=== PATIENT | female | born 1955 | race Caucasian/White ===

== ENCOUNTER 2025-03-27 17:41 | Emergency (ER) | payer OTHER, SELFPAY ==
--- NOTE | ~2025-03-27 | XR_ITS ---
CLINICAL HISTORY: wound 2 view left tibia-fibula Comparison: None provided Findings Mild osteopenia. No fracture or dislocation. No joint effusion. Prior total knee arthroplasty. Arterial calcifications are present. Calcaneal spur. IMPRESSION: 1. Prior total knee arthroplasty. 2. Mild osteopenia. 3. Arterial calcifications. 4. Calcaneal spur. 5. No acute osseous injury. This document has been electronically signed by: Ronald Ocampo MD on 03/27/2025 20:20:40
[2025-03-27 17:43] VITALS: BP 144/67; PULSE 85; RESP 16; TEMP 36.7; O2SAT 96; BMI 34.5
--- NOTE | 2025-03-27 17:45 | ED_ITS ---
HPI - Skin/Abscess/Foreign Bdy General Chief complaint: Wound/Laceration Stated complaint: Left leg wound Time Seen by Provider: 03/27/25 18:41 Source: patient Mode of arrival: ambulatory Limitations: no limitations History of Present Illness ED Provider: Dr. Mcginnis [facility] narrative: This is a 70-year-old female presented hospital today for evaluation of left leg wound. This has been going on for the past 15 days. Patient stated that there was a laceration initially. She has history of diabetes. However the wound become dehiscence. Since then this wound has been slowly healing and slow to heal. Patient's daughter was worried about the ulceration and drainage coming out from the wound. She is not currently on any antibiotics. She noticed some redness around the wound and pain Related Data Previous Rx's ?Medication ?Instructions ?Recorded ciprofloxacin HCl 500 mg tablet 500 mg PO Q12H 7 days #14 tabs 03/27/25 doxycycline hyclate 100 mg tablet 100 mg PO BID 7 days #14 tabs 03/27/25 oxycodone 5 mg tablet 5 mg PO Q8H PRN pain #14 tab s 03/27/25 Allergies Allergy/AdvReac Type Severity Reaction Status Date / Time No Known Allergies Allergy Verified 03/27/25 17:50 Review of Systems 2 Review of Systems: Pertinent review of systems as mentioned in HPI. All other system otherwise negative. [facility] Past Medical History [facility] Narrative: Diabetes Physical Exam 2 Exam: Exam: General: Pleasant, no distress, interacting appropriately Head: Normacephalic, atraumatic Extremity: This is a wound on patient's left leg around the tibia area. Appears to have some eschar tissue over it. No active drainage or fluctuance. However does appear to be erythematous on exam. CMS intact in the left lower extremity. Neurological: Awake and alert, no facial droop noted Skin: Warm and dry Psychiatric: Appropriate mood and thoughts Vital Signs: Vital Signs: Last Vital Signs Temp 98.2 F 03/27/25 21:35 Pulse 82 03/27/25 21:35 Resp 16 03/27/25 21:35 BP 136/82 03/27/25 21:35 Pulse Ox 100 03/27/25 21:35 O2 Del Method Room Air 03/27/25 21:35 BMI result Body Mass Index 34.5 Course Course Course Narrative: This is a Rapid Medical Exam performed in triage by Ngoc De La Garza PA-C. Full HPI, ROS and PE to be performed by primary ED provider. 70-year-old [place] Korean-speaking female w/pmhx DM presenting to the ED c/o wound to LLE s/p hitting leg with cardboard box 15 days ago. Has been seen by other providers but states sx are not improving - denies being on Abx PE: +open wound to LLE with surrounding erythema Plan: Labs Medications Administered Discontinued Medications Generic Name Dose Route Start Last Admin Trade Name James PRN Reason Stop Dose Admin Cephalexin HCl 500 mg 03/27/25 19:05 03/27/25 20:00 Cephalexin 500 Mg Capsule PO 03/27/25 19:06 500 mg ONCE ONE Administration Doxycycline Monohydrate 100 mg 03/27/25 19:05 03/27/25 20:00 Doxycycline Monohydrate 100 Mg Capsule PO 03/27/25 19:06 100 mg ONCE ONE Administration Oxycodone HCl 5 mg 03/27/25 20:49 03/27/25 21:33 Oxycodone Hcl Immed Release 5 Mg Tablet PO 03/27/25 20:50 5 mg ONCE ONE Administration Medical Decision Making Medical Decision Making [facility] Narrative: This is a 70-year-old female presented hospital today for evaluation of left leg wound that has been there for the past 15 days. Unfortunately did not heal well after suturing. We will plan to obtain x-ray to assess for any signs of gas forming organism versus osteomyelitis. Oxycodone will be given for pain control. We will plan to give patient some antibiotic here. P.o. doxycycline and Keflex will be given to the patient. Lab work did not show any signs of leukocytosis. Patient does not have any signs of tachycardia. X-ray is negative for any osteomyelitis or soft tissue gas I think this is uncomplicated cellulitis secondary to a chronic wound on her left leg. Unfortunately did not heal well. At this time we will plan to discharge patient with a course of doxycycline and ciprofloxacin to take. We will also send a referral for Wound Clinic for the patient to follow up with. historical interpreter was used for this encounter. Patient will be discharged Differential Diagnosis Differential Diagnoses: The differential diagnosis associated with the presentation includes Cellulitis, abscess, wound dehiscence, necrotizing fasciitis, osteomyelitis Lab Data [facility] Lab Attestation statement: I reviewed the patient's lab results. 03/27/25 18:19 03/27/25 18:19 Labs: Lab Results 03/27/25 Range/Units 18:19 WBC 7.6 (4.8-10.8) X10*3/uL RBC 3.81 L (4.20-5.50) X10*6/uL Hgb 12.0 (12.0-16.0) g/dl Hct 37.0 (37.0-47.0) % MCV 97.1 (80.0-98.0) fL MCH 31.5 (27.0-33.0) pg MCHC 32.4 (31.0-35.0) g/dl RDW 15.3 (11.0-16.0) % Plt Count 185 (160-400) X10*3/uL MPV 11.7 (9.4-12.3) fL Immature Gran % (Auto) 0.3 (0.0-0.4) % Neut % (Auto) 44.9 L (45-73) % Lymph % (Auto) 40.7 H (20-40) % [place] % (Auto) 10.0 (2-11) % Eos % (Auto) 3.6 (0-4) % Baso % (Auto) 0.5 (0-2) % Lymph # (Auto) 3.1 (1.2-4.9) X10*3/uL [place] # (Auto) 0.8 (0.1-1.2) X10*3/uL Eos # (Auto) 0.3 (0.0-0.4) X10*3/uL Baso # (Auto) 0.0 (0.0-0.2) X10*3/uL Abs Immat Gran (auto) 0.02 (0.00-0.03) X10*3/uL Absolute Neuts (auto) 3.4 (2.0-8.3) x10*3/uL Absolute Nucleated RBC 0.000 (0.0-0.012) X10*3/uL Nucleated RBC % (auto) 0.0 (0.0-0.2) /100WBC ESR 74 H (0-20) MM/HR Sodium 139 (135-145) mmol/L Potassium 4.7 (3.3-5.1) mmol/L Chloride 106 (96-108) mmol/L Carbon Dioxide 27 (22-29) mmol/L Anion Gap 11 L (12-20) BUN 21 H (9-16) mg/dL Creatinine 0.82 (0.5-1.4) mg/dL Estim Creat Clear Calc 58.9 Estimated GFR > 60 Random Glucose 87 (60-115) mg/dL Calcium 8.9 (8.4-10.2) mg/dL C-Reactive Protein 2.51 H (< or = 0.50) mg/dL Independent Interpretation I performed an independent interpretation of an: Plain X-Ray Radiology Impression Discussion of test interpretation with radiology: I have reviewed the radiologist's reading. Prescription Management I considered prescription management with: Antibiotic Discharge Plan Discharge Clinical Impression: Cellulitis Patient Disposition: Home, Self-Care Instructions: Cellulitis (ED) Prescriptions: New doxycycline hyclate 100 mg tablet 100 mg PO BID 7 Days Qty: 14 0RF ciprofloxacin HCl 500 mg tablet 500 mg PO Q12H 7 Days Qty: 14 0RF oxycodone 5 mg tablet 5 mg PO Q8H PRN (Reason: pain) Qty: 14 0RF Rx Instructions: Partial Fill upon patient request. Referrals: [facility] [Outside] Interventions: ED Discharge Assessment Last Done: 03/27/25 21:35 Discharge Date/Time: 03/27/25 21:35 Print Language: South Korean
[2025-03-27 18:26] LABS: MANUAL DIFF FLAG NO
[2025-03-27 18:37] LABS: Anion Gap 11 (12-20); Blood Urea Nitrogen 21 mg/dL (9-16); Calcium 8.9 mg/dL (8.4-10.2); Carbon Dioxide 27 mmol/L (22-29); Chloride 106 mmol/L (96-108); Creatinine Clr Calc Pharmacy 58.9; Estimated Glomerular Filt Rate > 60; Potassium 4.7 mmol/L (3.3-5.1); Sodium 139 mmol/L (135-145)
[2025-03-27 19:22] LABS: Erythrocyte Sedimentation Rate 74 MM/HR (0-20)
[2025-03-27 19:52] LABS: Hematocrit 37.0 % (37.0-47.0); Hemoglobin 12.0 g/dl (12.0-16.0); Imm Gran Abs Auto 0.02 X10*3/uL (0.00-0.03); Imm Gran Pct Auto 0.3 % (0.0-0.4); Lymphocytes Absolute Auto 3.1 X10*3/uL (1.2-4.9); Mean Corpuscular HGB Conc 32.4 g/dl (31.0-35.0); Mean Corpuscular Hemoglobin 31.5 pg (27.0-33.0); Mean Corpuscular Volume 97.1 fL (80.0-98.0); NRBC Abs Auto 0.000 X10*3/uL (0.0-0.012); NRBC Pct Auto 0.0 /100WBC (0.0-0.2); Platelet Count 185 X10*3/uL (160-400); Red Blood Count 3.81 X10*6/uL (4.20-5.50); White Blood Count 7.6 X10*3/uL (4.8-10.8)
[2025-03-27 21:33] VITALS: BP 136/82; PULSE 82; RESP 16; TEMP 36.8; O2SAT 100
[2025-03-27] MEDS: oxyCODONE HCl Immed Release 5 MG TABLET PO (21:33)
[2025-03-27 21:35] VITALS: BP 136/82; PULSE 82; RESP 16; TEMP 36.8; O2SAT 100
== END 2025-03-27 21:35 | disposition home or self-care (01) ==
PROVIDERS: Physician Assistant; Emergency Provider Student in an Organized Health Care Education/Training Program; PCP Internal Medicine
DX: L03.116 Cellulitis of left lower limb (principal); E11.9 Type 2 diabetes mellitus without complications
CPT/HCPCS: 36415; 73590; 80048; 85025; 85652; 86140; 99283; 99284

== ENCOUNTER → 2025-03-27 19:06 | Outpatient (BNV) | payer OTHER, SELFPAY | PROVIDERS: Emergency Provider Student in an Organized Health Care Education/Training Program; PCP Internal Medicine; Visit Provider Radiology Diagnostic Radiology | DX: M85.862 Other specified disorders of bone density and structure, left lower leg (principal); I70.202 Unspecified atherosclerosis of native arteries of extremities, left leg; M77.32 Calcaneal spur, left foot; Z96.652 Presence of left artificial knee joint | CPT/HCPCS: 73590 ==

== ENCOUNTER 2025-04-03 20:29 | Inpatient (IN) | payer OTHER, SELFPAY ==
--- NOTE | ~2025-04-03 | XR_ITS ---
EXAMINATION: XR LUMBOSACRAL SPINE CLINICAL INFORMATION: low back pain COMPARISON: None available. TECHNIQUE: AP and lateral views FINDINGS: Multilevel marginal osteophyte formation, endplate sclerosis decreased intervertebral disc height throughout the lower thoracic and lumbar spine. 1 mm anterolisthesis L4-5. Facet joint hypertrophy at L4-5 and L5-S1. No acute cortical disruption. No lytic or blastic lesions. XR/XR lumbar spine 2-3V IMPRESSION: Multilevel thoracolumbar spondylosis resulting in grade 1 anterolisthesis L4-5. EXAMINATION: XR SACROILIAC JOINTS CLINICAL INFORMATION: low back pain COMPARISON: None available. TECHNIQUE: AP and oblique views of the sacroiliac joints FINDINGS: Degenerative changes in the sacroiliac joints. No acute cortical disruption. No lytic or blastic lesions. Osteopenia versus osteoporosis. Spondylosis lower lumbar spine. Degenerative changes in the symphysis pubis. IMPRESSION: Degenerative changes without acute fracture. Electronically signed by: Deonte Denson MD 04/05/2025 10:30 AM [facility]
--- NOTE | ~2025-04-03 | XR_ITS ---
EXAMINATION: XR LUMBOSACRAL SPINE CLINICAL INFORMATION: low back pain COMPARISON: None available. TECHNIQUE: AP and lateral views FINDINGS: Multilevel marginal osteophyte formation, endplate sclerosis decreased intervertebral disc height throughout the lower thoracic and lumbar spine. 1 mm anterolisthesis L4-5. Facet joint hypertrophy at L4-5 and L5-S1. No acute cortical disruption. No lytic or blastic lesions. XR/XR sacrum coccyx min 2V IMPRESSION: Multilevel thoracolumbar spondylosis resulting in grade 1 anterolisthesis L4-5. EXAMINATION: XR SACROILIAC JOINTS CLINICAL INFORMATION: low back pain COMPARISON: None available. TECHNIQUE: AP and oblique views of the sacroiliac joints FINDINGS: Degenerative changes in the sacroiliac joints. No acute cortical disruption. No lytic or blastic lesions. Osteopenia versus osteoporosis. Spondylosis lower lumbar spine. Degenerative changes in the symphysis pubis. IMPRESSION: Degenerative changes without acute fracture. Electronically signed by: Deonte Denson MD 04/05/2025 10:30 AM [facility]
--- NOTE | ~2025-04-03 | XR_ITS ---
CLINICAL HISTORY: fever sepsis 1 view chest x-ray Comparison: None provided Findings: There is minor atelectasis in the medial left lung base. No consolidation or effusion. Heart size is normal. No acute fracture. IMPRESSION: Atelectasis left medial lung base. This document has been electronically signed by: Rachel Degroot MD on 04/03/2025 21:36:53
--- NOTE | ~2025-04-03 | XR_ITS ---
CLINICAL HISTORY: red warm lesion, medial leg 2 view left tibia-fibula Comparison: CR - XR TIBIA FIBULA LT 2V - 03/27/25 19:17 EST Findings Osteopenia. No acute fracture. Knee arthroplasty without hardware complications. No joint effusions. Calcaneal spurs. No erosions. Vascular calcifications. IMPRESSION: Medial mid leg soft tissue swelling. No soft tissue gas. This document has been electronically signed by: Rachel Degroot MD on 04/03/2025 21:38:18
[2025-04-03 20:46] VITALS: BP 135/69; PULSE 112; RESP 17; TEMP 39.7; O2SAT 97
--- NOTE | 2025-04-03 20:49 | ED_ITS ---
HPI - Fever General Chief Complaint: General Medical Stated Complaint: Neck pain, upper body stiffness Time Seen by Provider: 04/03/25 20:44 History of Present Illness ED Provider: anthony HPI Narrative: 70 F with arthritis, DM, LLE injury 1 mo ago (cardboard box fell on medial leg) now worse, painful, scabbing and fever. Worsening acute on chronic hand pain R > L. Related Data Home Medications ?Medication ?Instructions ?Recorded ?Confirmed acetaminophen 325 mg tablet 650 mg PO Q4H PRN Pain 08/2404/04/25 amitriptyline 25 mg tablet 25 mg PO BEDTIME 04/04/25 1 06/05/24 atorvastatin 40 mg tablet 40 mg PO DAILY 04/04/2508/24 benzonatate 100 mg capsule 100 mg PO TID PRN Cough 08/2404/04/25 diclofenac sodium 1 % topical gel 4 g topical BID PRN pain 04/04/25 04/04/25 fluticasone propionate 50 2 spray intranasal BID PRN N mirella 04/04/25 04/04/25 mcg/actuation nasal Congestion spray,suspension insulin glargine 100 unit/mL (3 15 unit subcut BEDTIME 04/04/25 04/04/25 mL) subcutaneous pen (Lantus Solostar U-100 Insulin) sertraline 25 mg tablet 25 mg PO DAILY 04/04/2508/24 tizanidine 2 mg tablet 2 mg PO BID 04/04/25 5 Previous Rx's ?Medication ?Instructions ?Recorded doxycycline hyclate 100 mg tablet 100 mg PO BID 7 days #14 tabs 03/27/25 midodrine 2.5 mg tablet 2.5 mg PO TID@0900,1300,1700 90 04/06/25 days #120 tabs prednisone 20 mg tablet 40 mg (2 x 20 mg) PO DAILY 5 days 04/06/25 #10 tabs Allergies Allergy/AdvReac Type Severity Reaction Status Date / Time Penicillins (PCN) AdvReac Unknown Flushing Verified 04/03/25 21:07 PMFSH Past Medical History Medical History (Updated 04/04/25 @ 02:55 by Chanel Carlson) Class 1 obesity T2DM (type 2 diabetes mellitus) HLD (hyperlipidemia) Anxiety Social History Social History Household Members: None Housing: House Do you presently have visiting nurse or other home services: Yes (DIRECTOR VOICE 33hrs/wk) Patient Tobacco Use Status: Never used Tobacco service: No Physical Exam 2 Exam: Exam: EXAM: Gen: Alert, awake, Mildly ill, appearing but not toxic, warm to the touch Head: Atraumatic Eyes: Anicteric, Normal conjunctiva. ENT: Moist mucosa, no pallor. Neck: Supple. Respiratory: Breathing comfortably, No distress.Clear to auscultation bilaterally, symmetric chest expansion, No wheeze, rales, ronchi. Cardiovascular: Regular rate and rhythm. No murmurs or rub. Well perfused periphery, warm extremities. No edema. Abdominal: Soft, no objective distension. No palpable masses or obvious organomegaly. No focal tenderness, no guarding, no rebound tenderness or other peritoneal findings. : No flank tenderness. Skin: Left lower extremity cellulitic healing wound. Neuro: Alert. Gross movement of all extremities intact. Vital signs: See flowsheet Vital Signs: Vital Signs: Last Vital Signs Temp 97.0 F 04/06/25 12:00 Pulse 48 L 04/06/25 12:00 Resp 20 04/06/25 12:00 BP 143/63 H 04/06/25 12:00 Pulse Ox 97 04/06/25 12:00 O2 Del Method Room Air 04/06/25 12:00 BMI result Body Mass Index 33.6 Medications Administered Discontinued Medications Generic Name Dose Route Start Last Admin Trade Name Freq PRN Reason Stop Dose Admin Acetaminophen 975 mg 04/03/25 20:44 04/03/25 21:20 Acetaminophen 325 Mg Tablet PO 04/03/25 20:45 975 mg ONCE ONE Administration Acetaminophen 975 mg 04/04/25 02:45 04/05/25 14:13 Acetaminophen 325 Mg Tablet PO 975 mg Q6H PRN Administration Pain, Mild 1-3,fever,headache Amitriptyline HCl 25 mg 04/04/25 21:00 04/05/25 22:23 Amitriptyline Hcl 25 Mg Tablet PO 25 mg BEDTIME SHARON Administration Atorvastatin Calcium 40 mg 04/05/25 09:00 04/06/25 09:07 Atorvastatin Calcium 40 Mg Tablet PO 40 mg DAILY SHARON Administration Celecoxib 200 mg 04/03/25 20:48 04/03/25 22:00 Celecoxib 200 Mg Capsule PO 04/03/25 20:49 200 mg ONCE ONE Administration Enoxaparin Sodium 40 mg 04/04/25 01:00 04/05/25 23:35 Enoxaparin Sodium 40 Mg/0.4 Ml Syringe SUBCUT 40 mg Q24H SHARON Administration Gabapentin 800 mg 04/04/25 00:15 04/06/25 09:05 Gabapentin 400 Mg Capsule PO 800 mg BID SHARON Administration Hydromorphone HCl 0.25 mg 04/03/25 22:18 04/03/25 22:24 Hydromorphone Hcl 0.5 Mg/0.5 Ml Syringe IVPUSH 04/03/25 22:19 0.25 mg ONCE ONE Administration Protocol Hydromorphone HCl 0.5 mg 04/04/25 00:05 04/04/25 21:11 Hydromorphone Hcl 1 Mg/Ml Syringe IVPUSH 0.5 mg Q4H PRN Administration Pain, Severe (Pain Scale 7-10) Protocol Ceftriaxone Sodium 2 gm/ 50 mls @ 100 mls/hr 04/03/25 20:50 04/03/25 21:49 Sodium Chloride IV 04/03/25 21:19 Infused ONCE ONE Infusion Sodium Chloride 1,000 mls @ 999 mls/hr 04/03/25 22:45 04/04/25 00:05 Ns IV 04/03/25 23:45 Infused .Q1H1M SHARON Infusion Cefepime HCl 2 gm in 50 mls @ 100 mls/hr 04/04/25 02:00 04/06/25 02:30 Maxipime IV Infused Q12H SHARON Infusion Vancomycin HCl 2,000 mg in 500 mls @ 250 mls/hr 04/04/25 01:15 04/04/25 03:48 Vancomycin/Ns IV 04/04/25 03:14 Infused ONCE ONE Infusion Vancomycin HCl 1,000 mg/ 270 mls @ 270 mls/hr 04/04/25 14:00 04/05/25 04:35 Sodium Chloride IV Infused Q12H SHARON Infusion Sodium Chloride 1,000 mls @ 1,500 mls/hr 04/04/25 12:00 04/04/25 14:17 Ns IV 04/04/25 12:59 Not Given .Q40M SHARON Sodium Chloride 500 mls @ 1,500 mls/hr 04/04/25 14:15 04/04/25 13:06 Ns IV 04/04/25 14:34 Infused .Q20M [facility] Infusion Albumin Human 100 mls @ 100 mls/hr 04/05/25 12:45 04/05/25 18:37 Kedbumin 25 % IV 04/05/25 19:44 Infused Q6H [facility] Infusion Vancomycin HCl 750 mg/ Sodium 265 mls @ 265 mls/hr 04/05/25 22:00 04/06/25 11:03 Chloride IV Infused Q12H [facility] Infusion Insulin Glargine 10 unit 04/04/25 21:00 04/05/25 22:27 Insulin Glargine,Hum.Rec.Anlog 100 Unit/Ml 10 Ml Vial SUBCUT 10 unit BEDTIME [facility] Administration Insulin Human Lispro 0 unit 04/04/25 07:30 04/06/25 11:22 Insulin Lispro 100 Unit/Ml 3 Ml Vial SUBCUT Not Given QIDACHS [facility] Protocol Ketorolac Tromethamine 15 mg 04/03/25 22:18 04/03/25 22:24 Ketorolac Tromethamine 15 Mg/Ml Vial IVPUSH 04/03/25 22:19 15 mg ONCE ONE Administration Lidocaine HCl 1 appl 04/03/25 20:48 04/03/25 22:25 Lidocaine 4 % Cream Kit TOPICAL 04/03/25 20:49 1 appl ONCE ONE Administration Protocol Methylprednisolone Sodium Succinate 40 mg 04/04/25 11:03 04/04/25 12:22 Methylprednisolone Sod Succ 40 Mg/Ml Vial IVPUSH 04/04/25 11:04 40 mg ONCE ONE Administration Midodrine 5 mg 04/05/25 14:15 04/05/25 17:26 Midodrine Hcl 5 Mg Tablet PO 5 mg TID@0900,1300,1700 [facility] Administration Midodrine 2.5 mg 04/06/25 09:00 04/06/25 09:07 Midodrine Hcl 2.5 Mg Tablet PO Not Given TID@0900,1300,1700 [facility] Oxycodone HCl 5 mg 04/04/25 00:05 04/05/25 03:32 Oxycodone Hcl Immed Release 5 Mg Tablet PO 5 mg Q6H PRN Administration Pain, Moderate(Pain Scale 4-6) Prednisone 40 mg 04/05/25 09:00 04/06/25 09:05 Prednisone 20 Mg Tablet PO 40 mg DAILY SHARON Administration Sertraline HCl 25 mg 04/05/25 09:00 04/06/25 09:06 Sertraline Hcl 25 Mg Tablet PO 25 mg DAILY SHARON Administration Sodium Chloride 3 ml 04/04/25 08:00 04/06/25 09:14 0.9 % Sodium Chloride Flush 3 Ml Syringe IVFLUSH 3 ml QSHIFT SHARON Administration Tizanidine HCl 2 mg 04/04/25 09:00 04/06/25 09:05 Tizanidine Hcl 4 Mg Tablet PO 2 mg BID SHARON Administration Medical Decision Making Medical Decision Making [facility] Narrative: 70-year-old female who presents reporting neck stiffness and is febrile, slightly tachycardic. History of diabetes, left lower extremity wound likely cellulitic. She is not meningitic, appears to have diffuse myalgias causing her pain, reports a headache. She likely has cellulitis due to non-adherence with prophylactic antibiotic after sutures were placed during laceration, which was on March 06. She meets sepsis criteria and was hydrated and given IV antibiotics, blood cultures drawn. Paired no lactate elevation over 4, no hypotension in the ED to indicate septic shock. Differential Diagnosis Differential Diagnoses: The differential diagnosis associated with the presentation includes Viral syndrome, come a pneumonia, come a cellulitis, come an unlikely necrotizing skin infection. Edwin Car Lab Data [facility] Lab Attestation statement: I reviewed the patient's lab results. 04/06/25 07:02 04/06/25 07:02 Labs: Lab Results 04/03/25 04/03/25 Range/Units 21:19 22:47 WBC 9.8 (4.8-10.8) X10*3/uL RBC 3.99 L (4.20-5.50) X10*6/uL Hgb 12.6 (12.0-16.0) g/dl Hct 37.6 (37.0-47.0) % MCV 94.2 (80.0-98.0) fL MCH 31.6 (27.0-33.0) pg MCHC 33.5 (31.0-35.0) g/dl RDW 14.0 (11.0-16.0) % Plt Count 210 (160-400) X10*3/uL MPV 10.4 (9.4-12.3) fL Immature Gran % (Auto) 0.2 (0.0-0.4) % Neut % (Auto) 60.8 (45-73) % Lymph % (Auto) 23.5 (20-40) % [place] % (Auto) 15.1 H (2-11) % Eos % (Auto) 0.1 (0-4) % Baso % (Auto) 0.3 (0-2) % Lymph # (Auto) 2.3 (1.2-4.9) X10*3/uL [place] # (Auto) 1.5 H (0.1-1.2) X10*3/uL Eos # (Auto) 0.0 (0.0-0.4) X10*3/uL Baso # (Auto) 0.0 (0.0-0.2) X10*3/uL Abs Immat Gran (auto) 0.02 (0.00-0.03) X10*3/uL Absolute Neuts (auto) 5.9 (2.0-8.3) x10*3/uL Absolute Nucleated RBC 0.000 (0.0-0.012) X10*3/uL Nucleated RBC % (auto) 0.0 (0.0-0.2) /100WBC PT 16.4 H (11.2-13.5) SEC INR 1.3 H (0.9-1.1) APTT 26.3 L (26.7-34.1) SEC Sodium 134 L (135-145) mmol/L Potassium 3.7 D (3.3-5.1) mmol/L Chloride 105 (96-108) mmol/L Carbon Dioxide 22 (22-29) mmol/L Anion Gap 11 L (12-20) BUN 15 (9-16) mg/dL Creatinine 0.79 (0.5-1.4) mg/dL Estim Creat Clear Calc 60.4 Estimated GFR > 60 Random Glucose 135 H (60-115) mg/dL Lactic Acid 1.6 (0.5-2.0) mmol/L Calcium 8.6 (8.4-10.2) mg/dL Total Bilirubin 0.7 (0.0-1.0) mg/dL Influenza Type A (PCR) NEGATIVE (Negative) Influenza Type B (PCR) NEGATIVE (Negative) RSV RNA Qual (PCR) NEGATIVE (Negative) SARS-CoV-2 RNA (RT-PCR) NEGATIVE (Negative) Independent Interpretation I performed an independent interpretation of an: Plain X-Ray Discharge Plan Discharge Clinical Impression: Cellulitis of left leg Patient Disposition: Admitted As Inpatient Interventions: Admission Worksheet (ED) Last Done: 04/04/25 19:34 Discharge Date/Time: 04/04/25 20:15
--- NOTE | 2025-04-03 20:50 | ECG_ITS ---
Test Reason : cp Blood Pressure : */* mmHG Vent. Rate : 107 BPM Atrial Rate : 107 BPM P-R Int : 128 ms QRS Dur : 68 ms QT Int : 322 ms P-R-T Axes : 62 -5 58 degrees QTcB Int : 429 ms Sinus tachycardia Possible Inferior infarct , age undetermined Abnormal ECG No previous ECGs available Referred By: Heath Buck Electronically Signed By: SCHUYLER SALMON
[2025-04-03 20:58] VITALS: BP 136/78; PULSE 115; O2SAT 96
[2025-04-03 21:01] VITALS: BP 135/69; PULSE 112; RESP 17; TEMP 39.7; O2SAT 97; BMI 33.6
--- NOTE | 2025-04-03 21:14 | PC.NURSE ---
Pt a&ox4, no signs of distress. Pt reports 9/10 leg, back, neck, shoulders, and head pain Pt requested and pillow placed under pts rt lower leg. Plan of care ongoing.
[2025-04-03 21:26] LABS: Hematocrit 37.6 % (37.0-47.0); Hemoglobin 12.6 g/dl (12.0-16.0); Imm Gran Abs Auto 0.02 X10*3/uL (0.00-0.03); Imm Gran Pct Auto 0.2 % (0.0-0.4); Lymphocytes Absolute Auto 2.3 X10*3/uL (1.2-4.9); MANUAL DIFF FLAG NO; Mean Corpuscular HGB Conc 33.5 g/dl (31.0-35.0); Mean Corpuscular Hemoglobin 31.6 pg (27.0-33.0); Mean Corpuscular Volume 94.2 fL (80.0-98.0); NRBC Abs Auto 0.000 X10*3/uL (0.0-0.012); NRBC Pct Auto 0.0 /100WBC (0.0-0.2); Platelet Count 210 X10*3/uL (160-400); Red Blood Count 3.99 X10*6/uL (4.20-5.50); White Blood Count 9.8 X10*3/uL (4.8-10.8)
[2025-04-03 21:33] LABS: INTERNATIONAL NORM RATIO 1.3 (0.9-1.1); Prothrombin Time 16.4 SEC (11.2-13.5)
[2025-04-03 21:36] LABS: Partial Thromboplastin Time 26.3 SEC (26.7-34.1)
[2025-04-03 21:38] LABS: Anion Gap 11 (12-20); Blood Urea Nitrogen 15 mg/dL (9-16); Calcium 8.6 mg/dL (8.4-10.2); Carbon Dioxide 22 mmol/L (22-29); Chloride 105 mmol/L (96-108); Creatinine Clr Calc Pharmacy 60.4; Estimated Glomerular Filt Rate > 60; Potassium 3.7 mmol/L (3.3-5.1); Sodium 134 mmol/L (135-145)
[2025-04-03 22:13] VITALS: BP 113/50; PULSE 99; RESP 16; TEMP 36.8; O2SAT 96
[2025-04-03] MEDS: Lidocaine 4 % Cream KIT 1 APPL TOPICAL (22:25)
--- NOTE | 2025-04-03 23:08 | PC.NURSE ---
Provider entered fluids at 2245 Plan of care ongoing.
[2025-04-03 23:27] LABS: Resp Syncy Virus RNA Qual PCR NEGATIVE (Negative); SARS COV2 PCR INHOUSE NEGATIVE (Negative)
--- NOTE | 2025-04-03 23:46 | PM.IMHP ---
History of Present Illness Date of Service: 04/03/25 Attending physician on admission: Romeo Ceja Chief Complaint: fever, leg pain Patient is a 70-year-old Icelandic-speaking female with a past medical history significant for anxiety, hyperlipidemia, chronic hand arthritis, type 2 diabetes and class 1 obesity, who presented to the ED due to pain in her left lower leg for the past month after an injury with associated fever. Patient cut her left story on a cardboard box on 03/06/2025 and had 21 sutures placed with antibiotics given. She did not tolerate the antibiotics and did not complete them. She has had continued pain in the left leg which has been worsening and she has now developed a fever. She also complains of a headache, arm pain, bilateral shoulder pain and back pain. She denies any nausea, vomiting, upper respiratory symptoms or urinary symptoms including frequency, urgency or dysuria. At baseline she takes gabapentin, tizanadine and amitriptyline. Review of Systems Constitutional: Constitutional: Reports body ache(s), Denies chills, Denies fatigue, Reports fever(s) and Reports headache(s) Eyes: Eyes: Denies change in vision ENT: Reports headache(s), Denies nasal congestion and Denies sore throat Cardiovascular: Cardiovascular: Denies chest pain, Denies rapid heart rate, Denies lightheadedness and Denies dyspnea Respiratory: Respiratory: Denies chest congestion, Denies cough, Denies dyspnea and Denies wheezing Gastrointestinal: Gastrointestinal: Denies abdominal pain, Denies nausea and Denies vomiting Genitourinary: Genitourinary: Denies dysuria and Denies urinary urgency Musculoskeletal: Musculoskeletal: Reports as per HPI Integumentary/Breasts: Skin/Breast: Reports as per HPI Neurologic: Denies confusion and Reports headache(s) Psychiatric: Psychiatric: Denies confusion Endocrine: Endocrine: Denies fatigue Hematologic/Lymphatic: Hematologic/Lymphatic: Denies easy bleeding Allergic/Immunologic: Allergic/Immunologic: Denies wheezing [facility] Medical History (Updated 04/03/25 @ 23:49 by Kira Bolanos PA-C) Class 1 obesity T2DM (type 2 diabetes mellitus) HLD (hyperlipidemia) Anxiety Functional capacity: independent ambulation Social History Smoked in Last 30 Days: No Use of substances other than those prescribed or required for medical reasons: No Advance Directives: No Advance Directives Information Provided: Yes Meds Allergies Allergy/AdvReac Type Severity Reaction Status Date / Time Penicillins (PCN) AdvReac Unknown Flushing Verified 04/03/25 21:07 Physical Exam Vital Signs and Narrative: Vital Signs: Last Vital Signs Temp 98.3 F 04/03/25 22:13 Pulse 99 04/03/25 22:13 Resp 16 04/03/25 22:13 BP 113/50 L 04/03/25 22:13 Pulse Ox 96 04/03/25 22:13 O2 Del Method Room Air 04/03/25 22:13 BMI result Body Mass Index 33.6 General: AOx3, no acute distress, seen with daughter who gives history, pt does not want to give history Resp: CTA bilaterally CVS: S1, S2, RRR GI: +BS, NT, no distention Skin: Warm, dry. large scab LLE with surrounding erythema, no increased warmth or drainage Neuro: Cranial nerves II-XII grossly intact bilaterally. Motor grossly intact bilaterally Extremities: No pitting edema Psych: Appropriate affect Const: General: No confusion Orientation/consciousness: No confusion Neuro: General: No confusion Results Labs 04/03/25 21:19 04/03/25 21:19 Labs: Laboratory Results - last 24 hr 04/03/25 04/03/25 21:19 22:47 MCV 94.2 MCH 31.6 MCHC 33.5 RDW 14.0 Plt Count 210 MPV 10.4 Immature Gran % (Auto) 0.2 Neut % (Auto) 60.8 Lymph % (Auto) 23.5 [place] % (Auto) 15.1 H Eos % (Auto) 0.1 Baso % (Auto) 0.3 Lymph # (Auto) 2.3 [place] # (Auto) 1.5 H Eos # (Auto) 0.0 Baso # (Auto) 0.0 Abs Immat Gran (auto) 0.02 Absolute Neuts (auto) 5.9 Absolute Nucleated RBC 0.000 Nucleated RBC % (auto) 0.0 PT 16.4 H INR 1.3 H APTT 26.3 L Anion Gap 11 L Estim Creat Clear Calc 60.4 Estimated GFR > 60 Random Glucose 135 H Lactic Acid 1.6 Calcium 8.6 Total Bilirubin 0.7 Influenza Type A (PCR) NEGATIVE Influenza Type B (PCR) NEGATIVE RSV RNA Qual (PCR) NEGATIVE SARS-CoV-2 RNA (RT-PCR) NEGATIVE Assessment and Plan (1) Sepsis: Status: Acute (2) Cellulitis: Qualifiers: Laterality: left Site of cellulitis: extremity Site of cellulitis of extremity: lower extremity Qualified Code(s): L03.116 - Cellulitis of left lower limb Status: Acute (3) Class 1 obesity: Status: Acute Plan Patient is a 70-year-old Icelandic-speaking female with a past medical history significant for anxiety, hyperlipidemia, chronic hand arthritis, type 2 diabetes and class 1 obesity, who presented to the ED due to pain in her left lower leg for the past month after an injury with associated fever. sepsis secondary to cellulitis L lower leg - cefepime and vancomycin - blood cultures pending - UA not yet done - pain management - monitor CBC and BMP anxiety - continue home meds HLD - continue home meds chronic pain - continue home meds T2DM - SSI - diabetic diet - lantus class 1 obesity - weight loss encouraged med rec pending DNI VTE prophy: lovenox Patient with sepsis secondary to cellulitis right lower leg with failed outpatient management, requiring admission for at least 2 midnights stay for IV antibiotics and monitoring. Quality Stroke Does the patient have a stroke diagnosis?: No VTE Prior VTE?: No VTE Risk Level:: Medical - moderate - high VTE Device Contraindication: Treatment Not Indicated VTE Drug Contraindication: N/A - Med Ordered
[2025-04-04] VITALS (25 sets, daily range): BP systolic 78–138; BP diastolic 42–63; PULSE 49–84; RESP 10–18; TEMP 36.1–36.8; O2SAT 95–97
[2025-04-04] MEDS: cefEPime HCl/D5W 2 GM/50 ML PIGGYBACK IV ×2 (01:07→14:09)
[2025-04-04] MEDS: vancomycin/NS 2,000 MG/500 ML PLAST..BAG 250 MG IV (01:42)
[2025-04-04 04:39] LABS: MANUAL DIFF FLAG NO
[2025-04-04 04:40] LABS: Hematocrit 34.1 % (37.0-47.0); Hemoglobin 11.1 g/dl (12.0-16.0); Imm Gran Abs Auto 0.04 X10*3/uL (0.00-0.03); Imm Gran Pct Auto 0.4 % (0.0-0.4); Lymphocytes Absolute Auto 2.6 X10*3/uL (1.2-4.9); Mean Corpuscular HGB Conc 32.6 g/dl (31.0-35.0); Mean Corpuscular Hemoglobin 31.2 pg (27.0-33.0); Mean Corpuscular Volume 95.8 fL (80.0-98.0); NRBC Abs Auto 0.000 X10*3/uL (0.0-0.012); NRBC Pct Auto 0.0 /100WBC (0.0-0.2); Platelet Count 209 X10*3/uL (160-400); Red Blood Count 3.56 X10*6/uL (4.20-5.50); White Blood Count 8.9 X10*3/uL (4.8-10.8)
[2025-04-04 04:53] LABS: Anion Gap 11 (12-20); Blood Urea Nitrogen 16 mg/dL (9-16); Calcium 7.9 mg/dL (8.4-10.2); Carbon Dioxide 19 mmol/L (22-29); Chloride 109 mmol/L (96-108); Creatinine Clr Calc Pharmacy 65.3; Estimated Glomerular Filt Rate > 60; Potassium 3.5 mmol/L (3.3-5.1); Sodium 135 mmol/L (135-145)
--- NOTE | 2025-04-04 06:50 | PHA.PROG ---
Admission Date/Time: April 03, 2025 23:38 Indication:Sepsis Weight in k.1 kg Adjusted body weight in K.54 Serum Creatinine - Last 168 Hours 04/03/25 04/04/25 21:19 04:16 Creatinine 0.79 0.73 Estimated CrCl and GFR - Last 168 Hours 04/03/25 04/04/25 21:19 04:16 Estim Creat Clear Calc 60.4 65.3 Estimated GFR > 60 > 60 Vancomycin Loading Dose: 2000 Q12H Current Vancomycin Dosing Regimen: 1000 Q12H Vancomycin Monitoring using AUC goal of 400 - 600 range with trough as surrogate marker: 571 Date and Time for next Vancomycin Level to be drawn: 04/05/2025 @1200 Pharmacist Comments on Vancomycin Plan: Vancomycin dosing will take advantage of [employer] as a clinical decision support tool that uses Bayesian modeling to calculate individual patient's pharmacokinetic parameters and forecast the patient's drug concentration time course with the target goal AUC 24 range of 400 - 600 mg/L/hr.
[2025-04-04 07:03] LABS: Glucose, Whole Blood 96 mg/dL (60-115)
[2025-04-04] MEDS: 0.9 % Sodium Chloride Flush 3 ML SYRINGE IVFLUSH ×2 (08:16→21:11)
--- NOTE | 2025-04-04 08:43 | PHA.MEDREC ---
Addendum entered by Manuel Mccarthy PharmD 04/04/25 08:47: reviewed Original Note: Pharmacy Consult ? Medication Reconciliation Pharmacy has completed the medication reconciliation. Spoke with pt daughter at bedside and she was able to confirm pt medications. Daughter confirmed pt still taking Ciprofloxacin and Doxycycline 7 day regimens and states the pt has one day left of them and pt takes 15 units of Lantus at bedtime; pt was able to verbally confirm that and daughter interpreted,
--- NOTE | 2025-04-04 09:02 | HO.NURTONUR ---
PER MD: Patient is a 70-year-old Italian-speaking female with a past medical history significant for anxiety, hyperlipidemia, chronic hand arthritis, type 2 diabetes and class 1 obesity, who presented to the ED due to pain in her left lower leg for the past month after an injury with associated fever. Patient cut her left story on a cardboard box on 03/06/2025 and had 21 sutures placed with antibiotics given. She did not tolerate the antibiotics and did not complete them. She has had continued pain in the left leg which has been worsening and she has now developed a fever. She also complains of a headache, arm pain, bilateral shoulder pain and back pain. She denies any nausea, vomiting, upper respiratory symptoms or urinary symptoms including frequency, urgency or dysuria. At baseline she takes gabapentin, tizanadine and amitriptyline. 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
[2025-04-04 11:55] LABS: Glucose, Whole Blood 111 mg/dL (60-115)
--- NOTE | 2025-04-04 11:58 | PC.NURSE ---
Pt BP noted to be hypotensive 78/44 manual. MD Lacey made aware- awaiting new orders at this time. Pt HR noted to be low 50s-40s, afebrile 97.7. Denies CP/SOB/dizziness/lightheadedness at this time- endorsing headache.
--- NOTE | 2025-04-04 12:05 | PM.EVENT ---
Event Note Date of Service: 04/04/25 Event Note: Patient noted to be hypotensive possibly due to sepsis we will check lactic acid, and give 30 cc/kilos for ideal body weight of 100 lb resulting in 1.5 L total Time Spent With Patient Time: Total time managing care of this patient today ____ minutes.
--- NOTE | 2025-04-04 12:30 | PC.NURSE ---
Additional IV placed 18g Left AC- fluids infusing per JUN d/t hypotension. BP cycling q10 minute to monitor. Lactic obtained and sent to lab. Pt remains asymptomatic. HR low 50s at this time. Call quevedo within reach, all needs met at this time.
--- NOTE | 2025-04-04 13:01 | HO.PM.IMPN ---
Subjective Subjective Date of Service: 04/04/25 Interval History: diffuse pain Physical Exam Exam: Exam: LLE erythema, in pain, bilateral hand tenderness and mild swelling Vital Signs: Vital Signs: Last Vital Signs Temp 97.7 F 04/04/25 12:28 Pulse 55 04/04/25 12:50 Resp 12 04/04/25 12:50 BP 95/51 L 04/04/25 12:50 Pulse Ox 97 04/04/25 12:50 O2 Del Method Room Air 04/04/25 12:50 BMI result Body Mass Index 33.6 Objective Data Active Medications Acetaminophen (Acetaminophen 325 Mg Tablet) 975 mg PO Q6H PRN PRN Reason: Pain, Mild 1-3,fever,headache Calcium Carbonate (Calcium Carbonate 750 Mg Tab.Chew) 750 mg PO Q4H PRN PRN Reason: Heartburn Dextrose (Dextrose 50 % 25 Gm/50 Ml Syringe) 25 gm IVPUSH Q15M PRN; Protocol PRN Reason: per Hypoglycemia Standing Ord. Enoxaparin Sodium (Enoxaparin Sodium 40 Mg/0.4 Ml Syringe) 40 mg SUBCUT Q24H ON LICENSE OF [facility] Last Admin: 04/04/25 01:07 Dose: 40 mg Documented By: RADHA Gabapentin (Gabapentin 400 Mg Capsule) 800 mg PO BID ON LICENSE OF [facility] Last Admin: 04/04/25 08:13 Dose: 800 mg Documented By: ALINA Glucose (Glucose Gel 15 Gm Gel..Gram.) 15 gm PO Q15M PRN; Protocol PRN Reason: per Hypoglycemia Standing Ord. Hydromorphone HCl (Hydromorphone Hcl 1 Mg/Ml Syringe) 0.5 mg IVPUSH Q4H PRN; Protocol PRN Reason: Pain, Severe (Pain Scale 7-10) Last Admin: 04/04/25 08:15 Dose: 0.5 mg Documented By: ALINA Cefepime HCl (Maxipime) 2 gm in 50 mls @ 100 mls/hr IV Q12H ON LICENSE OF [facility] Last Infusion: 04/04/25 01:42 Dose: Infused Documented By: RADHA Vancomycin HCl 1,000 mg/ (Sodium Chloride) 270 mls @ 270 mls/hr IV Q12H ON LICENSE OF [facility] Insulin Glargine (Insulin Glargine,Hum.Rec.Anlog 100 Unit/Ml 10 Ml Vial) 10 unit SUBCUT BEDTIME ON LICENSE OF [facility] Insulin Human Lispro (Insulin Lispro 100 Unit/Ml 3 Ml Vial) 0 unit SUBCUT QIDACHS ON LICENSE OF [facility]; Protocol Last Admin: 04/04/25 12:21 Dose: Not Given Documented By: DINESH Non-Admin Reason: No Insulin Coverage Comments: [id number] Magnesium Hydroxide (Milk Of Magnesia 30 Ml Oral.Susp) 30 ml PO DAILY PRN PRN Reason: Constipation Melatonin (Melatonin 3 Mg Tablet) 6 mg PO BEDTIME PRN PRN Reason: Insomnia Ondansetron HCl (Ondansetron Hcl 4 Mg/2 Ml Vial) 4 mg IVPUSH Q8H PRN PRN Reason: Nausea and Vomiting Oxycodone HCl (Oxycodone Hcl Immed Release 5 Mg Tablet) 5 mg PO Q6H PRN PRN Reason: Pain, Moderate(Pain Scale 4-6) Pharmacy Consult (Consult Rx Vancomycin Dosing) 1 each MISCELLANE DAILY PRN PRN Reason: Consult order Prednisone (Prednisone 20 Mg Tablet) 40 mg PO DAILY ON LICENSE OF [facility] Sodium Chloride (0.9 % Sodium Chloride Flush 3 Ml Syringe) 3 ml IVFLUSH QSHIFT ON LICENSE OF [facility] Last Admin: 04/04/25 08:16 Dose: 3 ml Documented By: ALINA Tizanidine HCl (Tizanidine Hcl 4 Mg Tablet) 2 mg PO BID ON LICENSE OF [facility] Last Admin: 04/04/25 08:13 Dose: 2 mg Documented By: ALINA Labs 04/04/25 04:16 04/04/25 04:16 Labs: Laboratory Results - last 24 hr 04/03/25 04/03/25 04/04/25 21:19 22:47 04:16 MCV 94.2 95.8 MCH 31.6 31.2 MCHC 33.5 32.6 RDW 14.0 14.1 Plt Count 210 209 MPV 10.4 10.8 Immature Gran % (Auto) 0.2 0.4 Neut % (Auto) 60.8 55.6 Lymph % (Auto) 23.5 29.3 [place] % (Auto) 15.1 H 13.8 H Eos % (Auto) 0.1 0.6 Baso % (Auto) 0.3 0.3 Lymph # (Auto) 2.3 2.6 [place] # (Auto) 1.5 H 1.2 Eos # (Auto) 0.0 0.1 Baso # (Auto) 0.0 0.0 Abs Immat Gran (auto) 0.02 0.04 H Absolute Neuts (auto) 5.9 5.0 Absolute Nucleated RBC 0.000 0.000 Nucleated RBC % (auto) 0.0 0.0 PT 16.4 H INR 1.3 H APTT 26.3 L Anion Gap 11 L 11 L Estim Creat Clear Calc 60.4 65.3 Estimated GFR > 60 > 60 POC Glucose Random Glucose 135 H 114 Lactic Acid 1.6 Calcium 8.6 7.9 L D Total Bilirubin 0.7 Influenza Type A (PCR) NEGATIVE Influenza Type B (PCR) NEGATIVE RSV RNA Qual (PCR) NEGATIVE SARS-CoV-2 RNA (RT-PCR) NEGATIVE 04/04/25 04/04/25 04/04/25 06:59 11:43 12:12 MCV MCH MCHC RDW Plt Count MPV Immature Gran % (Auto) Neut % (Auto) Lymph % (Auto) [place] % (Auto) Eos % (Auto) Baso % (Auto) Lymph # (Auto) [place] # (Auto) Eos # (Auto) Baso # (Auto) Abs Immat Gran (auto) Absolute Neuts (auto) Absolute Nucleated RBC Nucleated RBC % (auto) PT INR APTT Anion Gap Estim Creat Clear Calc Estimated GFR POC Glucose 96 111 Random Glucose Lactic Acid 1.0 Calcium Total Bilirubin Influenza Type A (PCR) Influenza Type B (PCR) RSV RNA Qual (PCR) SARS-CoV-2 RNA (RT-PCR) Assessment and Plan (1) T2DM (type 2 diabetes mellitus): Status: Acute (2) Sepsis: Status: Acute Plan 70F H moo disorder, inflammatory arthritis, dm, obesity, hld presented with lle erythema and fever Severe sepsis due to left lower extremity cellulitis Given 30 cc/kilos, lactic acid normal, continue vancomycin cefepime fall follow up cultures Inflammatory arthritis with acute flare prednisone 40 mg daily dm insulin Hyperlipidemia Continue statin Obesity Weight loss recommended DVT prophylaxis-Lovenox DNI reason for continued hospitalization: Septic Quality Stroke Does the patient have a stroke diagnosis?: No VTE Prior VTE?: No VTE Risk Level:: Medical - moderate - high VTE Device Contraindication: Treatment Not Indicated VTE Drug Contraindication: N/A - Med Ordered
--- NOTE | 2025-04-04 13:10 | PC.NURSE ---
1500ml NS hung per MAR @1225. Fluids finished infusing per MAR @1305. 2 blood pressures documented within hour of fluid completion. Pharmacy notified d/t unable to scan fluids into MAR- pharmacy able to verify/fix order. Pt received 1,500ml total of NS per MD Lacey. BPs continue to cycle q10 min to monitor. MD Lacey aware of BPs- no further orders. Call quevedo within reach, family at bedside and updated on plan of care.
--- NOTE | 2025-04-04 13:34 | MHC.CM.PN ---
IMM 04/04/25, Pt. is SSO, she was asleep, her son provided info. Pt. lives alone, she has [employer] 33 hrs per week, she does not use DME, family to transport home at [place], PCP to be confirmed when pt. is awake, record shows Steven Capellan MD. DCP: home, resume [employer]. CM to follow for DC needs.
[2025-04-04 17:48] LABS: Glucose, Whole Blood 136 mg/dL (60-115)
--- NOTE | 2025-04-04 19:27 | MHC.EDTECH ---
This cabinet professional was able to obtain a clean catch urine specimen from patient. Sample sent down to lab.
[2025-04-04 19:37] LABS: Appearance Urine Clear; Glucose Urine UA Negative (Negative); PH 6.5 (5.0-9.0); Specific Gravity - Urine 1.015 (1.005-1.025)
[2025-04-04] MEDS: oxyCODONE HCl Immed Release 5 MG TABLET PO (19:37)
--- NOTE | 2025-04-04 20:31 | PC.NURSE ---
in room now at 2029, slide board to bed, alert, oriented, calling cleaner assistant
[2025-04-04 20:43] LABS: Glucose, Whole Blood 142 mg/dL (60-115)
[2025-04-04] MEDS: Insulin Glargine,Hum.rec.anlog 100 UNIT/ML 10 ML VIAL 10 UNIT SUBCUT (21:11)
[2025-04-05] VITALS (10 sets, daily range): BP systolic 82–128; BP diastolic 44–65; PULSE 51–75; RESP 16–18; TEMP 36.2–36.8; O2SAT 95–97
[2025-04-05] MEDS: oxyCODONE HCl Immed Release 5 MG TABLET PO (03:32)
[2025-04-05] MEDS: cefEPime HCl/D5W 2 GM/50 ML PIGGYBACK IV ×2 (03:32→14:12)
[2025-04-05 07:00] LABS: Glucose, Whole Blood 105 mg/dL (60-115)
[2025-04-05 07:16] LABS: MANUAL DIFF FLAG NO
[2025-04-05 07:23] LABS: Hematocrit 33.9 % (37.0-47.0); Hemoglobin 10.9 g/dl (12.0-16.0); Imm Gran Abs Auto 0.04 X10*3/uL (0.00-0.03); Imm Gran Pct Auto 0.4 % (0.0-0.4); Lymphocytes Absolute Auto 1.4 X10*3/uL (1.2-4.9); Mean Corpuscular HGB Conc 32.2 g/dl (31.0-35.0); Mean Corpuscular Hemoglobin 31.5 pg (27.0-33.0); Mean Corpuscular Volume 98.0 fL (80.0-98.0); NRBC Abs Auto 0.000 X10*3/uL (0.0-0.012); NRBC Pct Auto 0.0 /100WBC (0.0-0.2); Platelet Count 185 X10*3/uL (160-400); Red Blood Count 3.46 X10*6/uL (4.20-5.50); White Blood Count 9.4 X10*3/uL (4.8-10.8)
[2025-04-05 07:45] LABS: Alanine Aminotransferase 20 U/L (0-31); Albumin Level 2.6 g/dL (3.5-5.0); Alkaline Phosphatase 202 U/L (39-117); Anion Gap 10 (12-20); Aspartate Amino Transferase 58 U/L (5-31); Blood Urea Nitrogen 20 mg/dL (9-16); Calcium 8.5 mg/dL (8.4-10.2); Carbon Dioxide 18 mmol/L (22-29); Chloride 114 mmol/L (96-108); Creatinine Clr Calc Pharmacy 78.1; Estimated Glomerular Filt Rate > 60; Potassium 4.0 mmol/L (3.3-5.1); Sodium 138 mmol/L (135-145); Total Protein 6.5 g/dL (6.5-8.0)
--- NOTE | 2025-04-05 09:12 | P.PNIM_ITS ---
Subjective Subjective Date of Service: 04/05/25 Interval History: Hand swelling and pain improved Physical Exam 2 Exam: Exam: General: AO X 3, no acute distress Resp: CTA bilateral, no accessory muscles used CVS: S1,S2,RRR GI: soft, non tender, non distended Neuro: motor grossly intact, alert Psych: appropriate affect, appropriate insight Vital Signs: Vital Signs: Last Vital Signs Temp 97.4 F 04/05/25 07:24 Pulse 52 04/05/25 07:24 Resp 18 04/05/25 07:24 BP 92/54 L 04/05/25 07:24 Pulse Ox 95 04/05/25 07:24 O2 Del Method Room Air 04/05/25 07:24 BMI result Body Mass Index 33.6 Objective Data Active Medications Acetaminophen (Acetaminophen 325 Mg Tablet) 975 mg PO Q6H PRN PRN Reason: Pain, Mild 1-3,fever,headache Amitriptyline HCl (Amitriptyline Hcl 25 Mg Tablet) 25 mg PO BEDTIME [facility] Last Admin: 04/04/25 21:09 Dose: 25 mg Documented By: DWAYNE Atorvastatin Calcium (Atorvastatin Calcium 40 Mg Tablet) 40 mg PO DAILY [facility] Benzonatate (Benzonatate 100 Mg Capsule) 100 mg PO TID PRN PRN Reason: Cough Calcium Carbonate (Calcium Carbonate 750 Mg Tab.Chew) 750 mg PO Q4H PRN PRN Reason: Heartburn Dextrose (Dextrose 50 % 25 Gm/50 Ml Syringe) 25 gm IVPUSH Q15M PRN; Protocol PRN Reason: per Hypoglycemia Standing Ord. Enoxaparin Sodium (Enoxaparin Sodium 40 Mg/0.4 Ml Syringe) 40 mg SUBCUT Q24H [facility] Last Admin: 04/04/25 23:59 Dose: 40 mg Documented By: DWAYNE Gabapentin (Gabapentin 400 Mg Capsule) 800 mg PO BID [facility] Last Admin: 04/04/25 21:09 Dose: 800 mg Documented By: DWAYNE Glucose (Glucose Gel 15 Gm Gel..Gram.) 15 gm PO Q15M PRN; Protocol PRN Reason: per Hypoglycemia Standing Ord. Hydromorphone HCl (Hydromorphone Hcl 1 Mg/Ml Syringe) 0.5 mg IVPUSH Q4H PRN; Protocol PRN Reason: Pain, Severe (Pain Scale 7-10) Last Admin: 04/04/25 21:11 Dose: 0.5 mg Documented By: DWAYNE Cefepime HCl (Maxipime) 2 gm in 50 mls @ 100 mls/hr IV Q12H [facility] Last Infusion: 04/05/25 04:05 Dose: Infused Documented By: DWAYNE Vancomycin HCl 1,000 mg/ (Sodium Chloride) 270 mls @ 270 mls/hr IV Q12H [facility] Last Infusion: 04/05/25 04:35 Dose: Infused Documented By: DWAYNE Insulin Glargine (Insulin Glargine,Hum.Rec.Anlog 100 Unit/Ml 10 Ml Vial) 10 unit SUBCUT BEDTIME [facility] Last Admin: 04/04/25 21:11 Dose: 10 unit Documented By: DWAYNE Insulin Human Lispro (Insulin Lispro 100 Unit/Ml 3 Ml Vial) 0 unit SUBCUT QIDACHS [facility]; Protocol Last Admin: 04/05/25 09:02 Dose: Not Given Documented By: CATARINO Non-Admin Reason: No Insulin Coverage Magnesium Hydroxide (Milk Of Magnesia 30 Ml Oral.Susp) 30 ml PO DAILY PRN PRN Reason: Constipation Melatonin (Melatonin 3 Mg Tablet) 6 mg PO BEDTIME PRN PRN Reason: Insomnia Ondansetron HCl (Ondansetron Hcl 4 Mg/2 Ml Vial) 4 mg IVPUSH Q8H PRN PRN Reason: Nausea and Vomiting Oxycodone HCl (Oxycodone Hcl Immed Release 5 Mg Tablet) 5 mg PO Q6H PRN PRN Reason: Pain, Moderate(Pain Scale 4-6) Last Admin: 04/05/25 03:32 Dose: 5 mg Documented By: DWAYNE Pharmacy Consult (Consult Rx Vancomycin Dosing) 1 each MISCELLANE DAILY PRN PRN Reason: Consult order Prednisone (Prednisone 20 Mg Tablet) 40 mg PO DAILY [facility] Sertraline HCl (Sertraline Hcl 25 Mg Tablet) 25 mg PO DAILY [facility] Sodium Chloride (0.9 % Sodium Chloride Flush 3 Ml Syringe) 3 ml IVFLUSH QSHIFT [facility] Last Admin: 04/04/25 21:11 Dose: 3 ml Documented By: DWAYNE Tizanidine HCl (Tizanidine Hcl 4 Mg Tablet) 2 mg PO BID [facility] Last Admin: 04/04/25 21:08 Dose: 2 mg Documented By: DWAYNE Labs 04/05/25 06:30 04/05/25 06:30 Labs: Laboratory Results - last 24 hr 04/04/25 04/04/25 04/04/25 11:43 12:12 17:44 MCV MCH MCHC RDW Plt Count MPV Immature Gran % (Auto) Neut % (Auto) Lymph % (Auto) [place] % (Auto) Eos % (Auto) Baso % (Auto) Lymph # (Auto) [place] # (Auto) Eos # (Auto) Baso # (Auto) Abs Immat Gran (auto) Absolute Neuts (auto) Absolute Nucleated RBC Nucleated RBC % (auto) Anion Gap Estim Creat Clear Calc Estimated GFR POC Glucose 111 136 H Random Glucose Lactic Acid 1.0 Calcium Total Bilirubin Direct Bilirubin AST ALT Alkaline Phosphatase Total Protein Albumin Urine Color Urine Appearance Urine pH Ur Specific [place] Urine Protein Urine Glucose (UA) Urine Ketones Urine Blood Urine Nitrite Ur Leukocyte Esterase Rheumatoid Factor 04/04/25 04/04/25 04/05/25 19:25 20:37 06:30 MCV 98.0 MCH 31.5 MCHC 32.2 RDW 14.2 Plt Count 185 MPV 11.0 Immature Gran % (Auto) 0.4 Neut % (Auto) 78.7 H Lymph % (Auto) 14.4 L [place] % (Auto) 6.4 Eos % (Auto) 0.0 Baso % (Auto) 0.1 Lymph # (Auto) 1.4 [place] # (Auto) 0.6 Eos # (Auto) 0.0 Baso # (Auto) 0.0 Abs Immat Gran (auto) 0.04 H Absolute Neuts (auto) 7.4 Absolute Nucleated RBC 0.000 Nucleated RBC % (auto) 0.0 Anion Gap 10 L Estim Creat Clear Calc 78.1 Estimated GFR > 60 POC Glucose 142 H Random Glucose 115 Lactic Acid Calcium 8.5 D Total Bilirubin 0.4 Direct Bilirubin 0.2 AST 58 H ALT 20 Alkaline Phosphatase 202 H Total Protein 6.5 Albumin 2.6 L Urine Color Yellow Urine Appearance Clear Urine pH 6.5 Ur Specific [place] 1.015 Urine Protein Trace Urine Glucose (UA) Negative Urine Ketones Negative Urine Blood Negative Urine Nitrite Negative Ur Leukocyte Esterase Negative Rheumatoid Factor < 13.0 04/05/25 06:52 MCV MCH MCHC RDW Plt Count MPV Immature Gran % (Auto) Neut % (Auto) Lymph % (Auto) [place] % (Auto) Eos % (Auto) Baso % (Auto) Lymph # (Auto) [place] # (Auto) Eos # (Auto) Baso # (Auto) Abs Immat Gran (auto) Absolute Neuts (auto) Absolute Nucleated RBC Nucleated RBC % (auto) Anion Gap Estim Creat Clear Calc Estimated GFR POC Glucose 105 Random Glucose Lactic Acid Calcium Total Bilirubin Direct Bilirubin AST ALT Alkaline Phosphatase Total Protein Albumin Urine Color Urine Appearance Urine pH Ur Specific [place] Urine Protein Urine Glucose (UA) Urine Ketones Urine Blood Urine Nitrite Ur Leukocyte Esterase Rheumatoid Factor Microbiology Microbiology Results: Microbiology 04/03/25 21:47 Blood Culture - Preliminary Blood - Venous No growth after 24 hours. 04/03/25 21:19 Blood Culture - Preliminary Blood - Venous No growth after 24 hours. Assessment and Plan (1) T2DM (type 2 diabetes mellitus): Status: Acute (2) Sepsis: Status: Acute Plan 70F PMH moo disorder, inflammatory arthritis, dm, obesity, hld presented with lle erythema and fever Severe sepsis due to left lower extremity cellulitis Given 30 cc/kilos, lactic acid normal, continue vancomycin cefepime, cultures negative so far Inflammatory arthritis with acute flare prednisone 40 mg daily dm insulin Back pain Check lumbosacral x-ray Hyperlipidemia Continue statin Obesity Weight loss recommended DVT prophylaxis-Lovenox DNI reason for continued hospitalization: Awaiting defervescence Quality Stroke Does the patient have a stroke diagnosis?: No VTE Prior VTE?: No VTE Risk Level:: Medical - moderate - high VTE Device Contraindication: Treatment Not Indicated VTE Drug Contraindication: N/A - Med Ordered
[2025-04-05] MEDS: 0.9 % Sodium Chloride Flush 3 ML SYRINGE IVFLUSH ×2 (10:44→23:35)
[2025-04-05 10:56] LABS: Glucose, Whole Blood 151 mg/dL (60-115)
[2025-04-05] MEDS: Albumin Human 25 % 100 ML IV ×2 (12:36→17:26)
--- NOTE | 2025-04-05 12:52 | HE.PHANOTE ---
NICK Changing dose to 750mg Q12H after holding dose to get patient back into desired range. New predicted trough 16.7, AUC 517. Still want patient on higher end per indication. SCr still stable. Checking trough again tomorrow 04/06 @1999.
[2025-04-05 16:39] LABS: Glucose, Whole Blood 201 mg/dL (60-115)
[2025-04-05 20:09] LABS: Glucose, Whole Blood 153 mg/dL (60-115)
[2025-04-05] MEDS: Insulin Glargine,Hum.rec.anlog 100 UNIT/ML 10 ML VIAL 10 UNIT SUBCUT (22:27)
[2025-04-06] MEDS: cefEPime HCl/D5W 2 GM/50 ML PIGGYBACK IV (01:47)
[2025-04-06 03:16] VITALS: BP 142/63; PULSE 52; RESP 18; TEMP 36.7; O2SAT 96
[2025-04-06 07:18] LABS: MANUAL DIFF FLAG NO
[2025-04-06 07:19] LABS: Hematocrit 31.7 % (37.0-47.0); Hematocrit 32.0 % (37.0-47.0); Hemoglobin 10.3 g/dl (12.0-16.0); Hemoglobin 10.4 g/dl (12.0-16.0); Imm Gran Abs Auto 0.05 X10*3/uL (0.00-0.03); Imm Gran Pct Auto 0.5 % (0.0-0.4); Lymphocytes Absolute Auto 1.8 X10*3/uL (1.2-4.9); Mean Corpuscular HGB Conc 32.5 g/dl (31.0-35.0); Mean Corpuscular Hemoglobin 31.1 pg (27.0-33.0); Mean Corpuscular Hemoglobin 31.2 pg (27.0-33.0); Mean Corpuscular Volume 95.8 fL (80.0-98.0); Mean Corpuscular Volume 96.1 fL (80.0-98.0); NRBC Abs Auto 0.000 X10*3/uL (0.0-0.012); NRBC Pct Auto 0.0 /100WBC (0.0-0.2); Platelet Count 169 X10*3/uL (160-400); Platelet Count 175 X10*3/uL (160-400); Red Blood Count 3.31 X10*6/uL (4.20-5.50); Red Blood Count 3.33 X10*6/uL (4.20-5.50); White Blood Count 10.1 X10*3/uL (4.8-10.8); White Blood Count 10.6 X10*3/uL (4.8-10.8)
[2025-04-06 07:26] LABS: Glucose, Whole Blood 108 mg/dL (60-115)
[2025-04-06 07:28] VITALS: BP 156/67; PULSE 57; RESP 20; TEMP 36.2; O2SAT 96
[2025-04-06 07:44] LABS: Anion Gap 12 (12-20); Blood Urea Nitrogen 23 mg/dL (9-16); Calcium 9.3 mg/dL (8.4-10.2); Carbon Dioxide 20 mmol/L (22-29); Chloride 114 mmol/L (96-108); Creatinine Clr Calc Pharmacy 63.6; Estimated Glomerular Filt Rate > 60; Potassium 4.5 mmol/L (3.3-5.1); Sodium 141 mmol/L (135-145)
[2025-04-06] MEDS: 0.9 % Sodium Chloride Flush 3 ML SYRINGE IVFLUSH (09:14)
--- NOTE | 2025-04-06 10:31 | PM.DS ---
DS: Providers Provider Date of Service: 04/06/25 Date of admission: 04/03/25 23:38 Date of discharge: 04/06/25 Primary care physician: Steven Capellan III, MD DS: Diagnosis Discharge Diagnosis (1) T2DM (type 2 diabetes mellitus): Status: Acute (2) Sepsis: Status: Acute DS: Summary Hospital Course Hospital Course: from initial hpi: 70-year-old Marshallese-speaking female with a past medical history significant for anxiety, hyperlipidemia, chronic hand arthritis, type 2 diabetes and class 1 obesity, who presented to the ED due to pain in her left lower leg for the past month after an injury with associated fever. Patient cut her left story on a cardboard box on 03/06/2025 and had 21 sutures placed with antibiotics given. She did not tolerate the antibiotics and did not complete them. She has had continued pain in the left leg which has been worsening and she has now developed a fever. She also complains of a headache, arm pain, bilateral shoulder pain and back pain. She denies any nausea, vomiting, upper respiratory symptoms or urinary symptoms including frequency, urgency or dysuria. At baseline she takes gabapentin, tizanadine and amitriptyline. hospital course: Patient was admitted for severe sepsis due to left lower extremity cellulitis. Was given 30 cc/kilos, vancomycin, cefepime, sepsis resolved cultures were negative erythema improved. On discharge we will continue course of doxycycline. Course also complicated by inflammatory arthritis with acute flare which significantly improved with steroid course. We will continue with prednisone 40 mg daily and should follow up with Rheumatology as outpatient. For diabetes was continued on insulin. For hyperlipidemia continued on statin. For obesity weight loss recommended. Time Attestation Discharge Coordination Time (in mins): 33 Quality: Safe Use of Opioids Does Pt have an Active Cancer Diagnosis on the Problem List?: No Quality: Stroke Does the patient have a stroke diagnosis?: No Physical Exam Exam: Exam: General: AO X 3, no acute distress Resp: CTA bilateral, no accessory muscles used CVS: S1,S2,RRR GI: soft, non tender, non distended Neuro: motor grossly intact, alert Psych: appropriate affect, appropriate insight Vital Signs: Vital Signs: Last Vital Signs Temp 97.2 F 04/06/25 07:28 Pulse 57 04/06/25 07:28 Resp 20 04/06/25 07:28 BP 156/67 H 04/06/25 07:28 Pulse Ox 96 04/06/25 07:28 O2 Del Method Room Air 04/06/25 07:28 BMI result Body Mass Index 33.6 DS: Data Data Completed and Pending Labs on day of discharge: Laboratory Results - last 24 hr 04/05/25 04/05/25 04/05/25 10:52 11:57 16:35 WBC RBC Hgb Hct MCV MCH MCHC RDW Plt Count MPV Immature Gran % (Auto) Neut % (Auto) Lymph % (Auto) [place] % (Auto) Eos % (Auto) Baso % (Auto) Lymph # (Auto) [place] # (Auto) Eos # (Auto) Baso # (Auto) Abs Immat Gran (auto) Absolute Neuts (auto) Absolute Nucleated RBC Nucleated RBC % (auto) Sodium Potassium Chloride Carbon Dioxide Anion Gap BUN Creatinine Estim Creat Clear Calc Estimated GFR POC Glucose 151 H 201 H Random Glucose Calcium Random Vancomycin 24.3 H 04/05/25 04/06/25 04/06/25 20:05 07:02 07:02 WBC 10.6 10.1 RBC 3.33 L Hgb Hct MCV MCH MCHC RDW Plt Count MPV Immature Gran % (Auto) Neut % (Auto) Lymph % (Auto) [place] % (Auto) Eos % (Auto) Baso % (Auto) Lymph # (Auto) [place] # (Auto) Eos # (Auto) Baso # (Auto) Abs Immat Gran (auto) Absolute Neuts (auto) Absolute Nucleated RBC Nucleated RBC % (auto) Sodium Potassium Chloride Carbon Dioxide Anion Gap BUN Creatinine Estim Creat Clear Calc Estimated GFR POC Glucose 153 H Random Glucose Calcium Random Vancomycin 04/06/25 04/06/25 04/06/25 07:02 07:02 07:02 WBC RBC 3.31 L Hgb 10.4 L 10.3 L Hct 32.0 L 31.7 L MCV 96.1 MCH MCHC RDW Plt Count MPV Immature Gran % (Auto) Neut % (Auto) Lymph % (Auto) [place] % (Auto) Eos % (Auto) Baso % (Auto) Lymph # (Auto) [place] # (Auto) Eos # (Auto) Baso # (Auto) Abs Immat Gran (auto) Absolute Neuts (auto) Absolute Nucleated RBC Nucleated RBC % (auto) Sodium Potassium Chloride Carbon Dioxide Anion Gap BUN Creatinine Estim Creat Clear Calc Estimated GFR POC Glucose Random Glucose Calcium Random Vancomycin 04/06/25 04/06/25 04/06/25 07:02 07:02 07:02 WBC RBC Hgb Hct MCV 95.8 MCH 31.2 31.1 MCHC 32.5 32.5 RDW 14.4 Plt Count MPV Immature Gran % (Auto) Neut % (Auto) Lymph % (Auto) [place] % (Auto) Eos % (Auto) Baso % (Auto) Lymph # (Auto) [place] # (Auto) Eos # (Auto) Baso # (Auto) Abs Immat Gran (auto) Absolute Neuts (auto) Absolute Nucleated RBC Nucleated RBC % (auto) Sodium Potassium Chloride Carbon Dioxide Anion Gap BUN Creatinine Estim Creat Clear Calc Estimated GFR POC Glucose Random Glucose Calcium Random Vancomycin 04/06/25 04/06/25 04/06/25 07:02 07:02 07:02 WBC RBC Hgb Hct MCV MCH MCHC RDW 14.4 Plt Count 175 169 MPV 10.9 11.2 Immature Gran % (Auto) 0.5 H Neut % (Auto) 73.9 H Lymph % (Auto) 17.6 L [place] % (Auto) 7.9 Eos % (Auto) 0.0 Baso % (Auto) 0.1 Lymph # (Auto) 1.8 [place] # (Auto) 0.8 Eos # (Auto) 0.0 Baso # (Auto) 0.0 Abs Immat Gran (auto) 0.05 H Absolute Neuts (auto) 7.5 Absolute Nucleated RBC 0.000 Nucleated RBC % (auto) Sodium Potassium Chloride Carbon Dioxide Anion Gap BUN Creatinine Estim Creat Clear Calc Estimated GFR POC Glucose Random Glucose Calcium Random Vancomycin 04/06/25 04/06/25 04/06/25 07:02 07:02 07:18 WBC RBC Hgb Hct MCV MCH MCHC RDW Plt Count MPV Immature Gran % (Auto) Neut % (Auto) Lymph % (Auto) [place] % (Auto) Eos % (Auto) Baso % (Auto) Lymph # (Auto) [place] # (Auto) Eos # (Auto) Baso # (Auto) Abs Immat Gran (auto) Absolute Neuts (auto) Absolute Nucleated RBC 0.000 Nucleated RBC % (auto) 0.0 0.0 Sodium 141 Potassium 4.5 Chloride 114 H Carbon Dioxide 20 L Anion Gap 12 BUN 23 H Creatinine 0.75 Estim Creat Clear Calc 63.6 Estimated GFR > 60 POC Glucose 108 Random Glucose 110 Calcium 9.3 D Random Vancomycin Preliminary micro results at discharge 04/03/25 21:47 Blood Culture - Preliminary Blood - Venous No growth after 48 hours. 04/03/25 21:19 Blood Culture - Preliminary Blood - Venous No growth after 48 hours. Discharge Plan Discharge Anticipated Discharge Date/Time: 04/06/25 10:28 Patient Disposition: Home, Self-Care Discharge Diagnosis: cellulitis, inflammaotry arthritis Referrals: Steven Capellan III, MD [Primary Care Provider, Medical] - 1 Week Discharge Medications: New prednisone 20 mg Tablet 40 mg PO DAILY 5 Days Qty: 10 0RF midodrine 2.5 mg Tablet 2.5 mg PO TID@0900,1300,1700 90 Days Qty: 120 0RF Continued doxycycline hyclate 100 mg tablet 100 mg PO BID 7 Days Qty: 14 0RF atorvastatin 40 mg tablet 40 mg PO DAILY acetaminophen 325 mg Tablet 650 mg PO Q4H PRN (Reason: Pain) tizanidine 2 mg tablet 2 mg PO BID amitriptyline 25 mg tablet 25 mg PO BEDTIME benzonatate 100 mg capsule 100 mg PO TID PRN (Reason: Cough) sertraline 25 mg tablet 25 mg PO DAILY fluticasone propionate 50 mcg/actuation spray,suspension 2 spray intranasal BID PRN (Reason: Nasal Congestion) insulin glargine [Lantus Solostar U-100 Insulin] 100 unit/mL (3 mL) insulin pen 15 unit subcut BEDTIME diclofenac sodium 1 % gel 4 g topical BID PRN (Reason: pain) Discontinued ciprofloxacin HCl 500 mg tablet 500 mg PO Q12H 7 Days Qty: 14 0RF Discharge Orders: Discharge Order (Routine); Ordered 04/06/25 Ordered By: Julito Lacey Diet: Advance to usual diet Activity on Discharge: As tolerated Stand Alone Forms: Patient Portal Discharge page Print Language: Marshallese Care Plan Goals: recovery Health Concerns: cellulitis, inflammatory arthritis Plan of Treatment: Continue prednisone, follow up with Rheumatology, complete doxycycline course Assessment: See above
--- NOTE | 2025-04-06 10:35 | MHC.CM.PN ---
PATIENT IS MEDICALLY CLEARED FOR DISCHARGE TODAY HOME SELF-CARE, SHE WILL ARRANGE HER OWN TRANSPORT HOME.
[2025-04-06 11:13] LABS: Glucose, Whole Blood 136 mg/dL (60-115)
[2025-04-06 12:00] VITALS: BP 143/63; PULSE 48; RESP 20; TEMP 36.1; O2SAT 97
[2025-04-09 11:38] LABS: Anti Nuclear Antibody Screen NEGATIVE (NEGATIVE)
== END 2025-04-06 12:58 | disposition home or self-care (01) | DRG 872 ==
LOC: HO.ED 21:18 → HO.EDOVER 04-04 00:04 → HO.IMC 04-04 19:10
PROVIDERS: Admitting Provider Physician Assistant; Emergency Provider Emergency Medicine; PCP Internal Medicine; Visit Provider Internal Medicine
DX: A41.9 Sepsis, unspecified organism (principal); L03.116 Cellulitis of left lower limb; E66.811 Obesity, class 1; F41.9 Anxiety disorder, unspecified; G89.29 Other chronic pain; R65.20 Severe sepsis without septic shock; E78.5 Hyperlipidemia, unspecified; M19.042 Primary osteoarthritis, left hand; M19.041 Primary osteoarthritis, right hand; Z71.3 Dietary counseling and surveillance; Z68.33 Body mass index [BMI] 33.0-33.9, adult; Z20.822 Contact with and (suspected) exposure to COVID-19; Z79.4 Long term (current) use of insulin; Z79.899 Other long term (current) drug therapy
CPT/HCPCS: 36415; 71045; 72100; 72220; 73590; 80048; 80076; 80202; 81003; 82247; 82947; 83605; 85025; 85027; 85610; 85730; 86038; 86200; 86431; 87040; 87637; 93005; 99285; J0692; J0696; J1171; J1650; J1885; J2919; J3373; J3374; P9047

== ENCOUNTER → 2025-04-03 20:44 | Outpatient (BNV) | payer OTHER, SELFPAY | PROVIDERS: Emergency Provider Emergency Medicine; PCP Internal Medicine; Visit Provider Radiology Diagnostic Radiology | DX: J98.11 Atelectasis (principal); M79.89 Other specified soft tissue disorders | CPT/HCPCS: 71045; 73590 ==

== ENCOUNTER → 2025-04-03 20:50 | Outpatient (BNV) | payer OTHER, SELFPAY | PROVIDERS: Admitting Provider Physician Assistant; Emergency Provider Emergency Medicine; PCP Internal Medicine; Visit Provider Internal Medicine | DX: R00.0 Tachycardia, unspecified (principal) | CPT/HCPCS: 93010 ==

== ENCOUNTER 2025-04-03 23:38 | Outpatient (BNV) | payer OTHER, SELFPAY | END 2025-04-05 10:16 | PROVIDERS: Admitting Provider Physician Assistant; Emergency Provider Emergency Medicine; PCP Internal Medicine; Visit Provider Radiology Diagnostic Radiology | DX: M51.370 Other intervertebral disc degeneration, lumbosacral region with discogenic back pain only (principal); M47.815 Spondylosis without myelopathy or radiculopathy, thoracolumbar region | CPT/HCPCS: 72100; 72220 ==

== ENCOUNTER → 2025-04-03 23:38 | Outpatient (BNV) | payer OTHER, SELFPAY | PROVIDERS: Admitting Provider Physician Assistant; Emergency Provider Emergency Medicine; PCP Internal Medicine; Visit Provider Internal Medicine | DX: E11.9 Type 2 diabetes mellitus without complications (principal); L03.116 Cellulitis of left lower limb; A41.9 Sepsis, unspecified organism; E66.811 Obesity, class 1 | CPT/HCPCS: 99222; 99233; 99239; 99499 ==